=== PATIENT | male | born 1940 | race Caucasian/White ===

== ENCOUNTER 2018-06-18 11:06 | Emergency (ER) | payer OTHER ==
[~2018-06-18] VITALS: Ht 180.3 cm; Wt 99.8 kg
[2018-06-18 11:21] VITALS: BP 137/65
--- NOTE | 2018-06-18 11:21 | NUR ---
Patient ambulated to bed 6 at this time.
--- NOTE | 2018-06-18 11:22 | NUR ---
PATIENT PRESENTS TO ED WITH THE CHIEF C/O N/V/D. PT STATES SYMPTOMS STARTED LAST NIGHT. SKIN IS PINK/WARM/DRY; AAOX4 WITH EVEN AND STEADY GAIT; LUNGS CLEAR BL; HR EVEN AND REGULAR; PT DENIES ANY FEVER, CP, SOB, OR COUGH AT THIS TIME; PATIENT STATES ABDOMINAL DISCOMFORT. DENIES ABDOMINAL PAIN. AT THIS TIME; VSS; PATIENT POSITIONED FOR COMFORT; HOB ELEVATED; BEDRAILS UP X2; BED DOWN. ER MD MADE AWARE OF PT STATUS.
[2018-06-18] MEDS ORDERED: ONDANSETRON 4 MG ODT PO ONE (11:35)
--- NOTE | 2018-06-18 11:54 | NUR ---
PT TAKEN TO RESTROOM TO COLLECT URINE SAMPLE. PT STATED HE HAD DIRRHEA IN LARGE AMOUNT BUT NO URINATION. PROVIDED WATER AND ENCOURAGED TO DRINK WATER MORE.
--- NOTE | 2018-06-18 13:19 | NUR ---
Patient being evaluated by Dr. Mcdonough at this time.
[2018-06-18] MEDS ORDERED: KETOROLAC 60 MG/2 ML VIAL IM ONE (13:25)
--- NOTE | 2018-06-18 14:15 | NUR ---
Patient discharged with v/s stable. Written and verbal after care instructions given and explained. Patient alert, oriented and verbalized understanding of instructions. Ambulatory with steady gait. All questions addressed prior to discharge. ID band removed. Patient advised to follow up with PMD. Rx of ZOFRAN, IMODIUM AND MOTRIN given. Patient educated on indication of medication including possible reaction and side effects. Opportunity to ask questions provided and answered.
[2018-06-18 14:18] VITALS: BP 142/64
== END 2018-06-18 14:15 | disposition home or self-care (01) ==
LOC: MED 11:06
DX: R10.13 Epigastric pain (principal); R11.2 Nausea with vomiting, unspecified; R19.7 Diarrhea, unspecified; E11.9 Type 2 diabetes mellitus without complications; I10 Essential (primary) hypertension; Z88.8 Allergy status to other drugs, medicaments and biological substances
CPT/HCPCS: 81002; 82948; 96372; 99283; J1885; Q0162